=== PATIENT | female | born 1980 | race Caucasian/White ===

== ENCOUNTER 2016-03-26 11:27 | Emergency (ER) | payer OTHER ==
[~2016-03-26] VITALS: Ht 167.6 cm; Wt 89.0 kg
[~2016-03-26 11:27] MED LIST: AZIT500T5 PO; HYDR-906 PO; KENC1 TOP; MED4DP PO; NAPR-260 PO; NAPR-688 PO; OFLO5DRO7 BOTH EARS
[2016-03-26 11:31] VITALS: Ht 167.6 cm; Wt 89.0 kg
--- NOTE | 2016-03-26 13:41 | RADRPT ---
PROCEDURE: XR Elbow. CLINICAL INDICATION: Pain TECHNIQUE: AP, lateral and oblique views of the left elbow performed. COMPARISON: None. FINDINGS: There is normal mineralization and alignment. There is a tiny linear calcification next to the medial epicondyle, suspicious for a small avulsion fracture. There is no significant joint space narrowing. There is soft tissue swelling in the medial left elbow. RPTAT: AA IMPRESSION: Probable small avulsion fracture from the medial epicondyle. Associated soft tissue swelling. .Jose Ritchie MD, MD Date Time Electronically viewed and signed by .Jose Ritchie MD, on 03/26/2016 13:41 .S/
--- NOTE | 2016-03-26 13:42 | RADRPT ---
PROCEDURE: Left humerus x-ray CLINICAL INDICATION: pain TECHNIQUE: AP and lateral views of the humerus were obtained. COMPARISON: None FINDINGS: There is normal mineralization. No acute fracture or dislocation is seen. There is no significant soft tissue swelling. The visualized joints are normal. RPTAT: AA IMPRESSION: No fractures seen in the humerus x-ray. Probable small avulsion fracture of the medial epicondyle is best seen on the elbow x-ray. .Jose Ritchie MD, MD Date Time Electronically viewed and signed by .Jose Ritchie MD, on 03/26/2016 13:42 .S/
[2016-03-26] MEDS ORDERED: CEPH-443 PO (14:27)
[2016-03-26] MEDS ORDERED: IBUP-1542 PO (14:27)
--- NOTE | 2016-03-26 14:46 | ERD ---
ER Documentation Chief Complaint Date/Time DATE: 03/26/16 TIME: 14:42 Chief Complaint left arm pain, no trauma, wants antibiotics, HPI This is a 35-year-old female presents to the ER with left elbow pain that started about a week ago. Patient states that her left elbow is swollen. She also has swelling of her left humerus. Patient is a current heroin user and states that she did heroin and now has some areas with there is some redness and warmth. Patient is concerned about an infection. Patient has had a fever however fever resolved. Patient denies any falls or trauma. Denies any numbness or tingling of her extremity. ROS 12 point review of systems was done, all negative except per HPI. Medications Home Meds Active Scripts Cephalexin* (Keflex*) 500 Mg Capsule, 500 MG PO QID for 7 Days, CAP Prov:CRISTHIAN MORENO 03/26/16 Ibuprofen* (Motrin*) 600 Mg Tab, 600 MG PO Q6, #30 TAB Prov:CRISTHIAN MORENO 03/26/16 Naproxen* (Naprosyn*) 500 Mg Tablet, 500 MG PO BID Y for PAIN AND/OR INFLAMMATION, #30 TAB Prov:JAMES NUR PA-C 12/23/15 Hydrocodone/Acetaminophen (Cutler 5-325 Tablet) 1 Each Tablet, 1 TAB PO Q6H Y for PAIN, #7 TAB Prov:JAMES NUR PA-C 12/23/15 Triamcinolone Acetonide (Triamcinolone Acetonide) 0.1% - 15 Gm Cream.gm., 1 APPLIC TOP BID for 7 Days, #1 TUB Prov:OSMEL RADFORD MD 10/27/15 Ofloxacin* (Floxin* Otic) 0.3% -10 Ml Soln, 5 DROP BOTH EARS BID for 10 Days, BOTTLE Prov:OSMEL RADFORD MD 10/27/15 Azithromycin* (Azithromycin*) 500 Mg Tablet, 500 MG PO DAILY, #3 TAB Prov:ELINOR TAY DO 10/25/15 Naproxen* (Naproxen*) 500 Mg Tablet, 500 MG PO BID, #14 TAB Prov:ELINOR TAY DO 10/25/15 Methylprednisolone* (Medrol* DOSE PACK) 4 Mg/Dose-Pack Tab.ds.pk, 4 MG PO . DIRECTED, #16 PACKET 4 tabs for 3 days, then 2 tabs for 2 days then 1 tab for 2 days Prov:ELINOR TAY DO 10/25/15 Allergies Allergies: Coded Allergies: No Known Allergy (Unverified , 10/27/15) PMhx/Soc Medical and Surgical Hx: pt denies Medical Hx, pt denies Surgical Hx History of Surgery: No Anesthesia Reaction: No Hx Neurological Disorder: No Hx Respiratory Disorders: No Hx Cardiac Disorders: No Hx Psychiatric Problems: No Hx Miscellaneous Medical Probl: No Hx Alcohol Use: No Hx Substance Use: Yes (heroine 14hrs ago) Hx Tobacco Use: No Smoking Status: Never smoker Physical Exam Vitals Vital Signs Date Time Temp Pulse Resp B/P Pulse Ox O2 Delivery O2 Flow Rate FiO2 03/26/16 11:31 98.1 79 20 148/79 99 Physical Exam C GENERAL: The patient is well developed and appropriate for usual state of health, in no apparent distress. HEENT: Atraumatic. Conjunctivae are pink. Pupils equal, round, and reactive to light. Extraocular muscles are grossly intact. Bilateral tympanic membranes are clear with no evidence of erythema, effusion or dulling of the light reflex. The oropharynx is clear with no erythema or exudates. NECK: C-spine is soft and supple. There is no cervical lymphadenopathy. CHEST: Clear to auscultation bilaterally. There are no rales, wheezes or rhonchi. HEART: Regular rate and rhythm. No murmurs, clicks, rubs or gallops. BACK: No midline or flank tenderness. EXTREMITIES: Left elbow: There is some swelling to the left elbow, patient is tender to palpation along medial epicondyle. Patient has full range of motion of her elbow. There is some swelling of the distal left humerus. However it is not tender to palpation. Patient is a wrist is normal with no pain. NEURO: Alert and oriented. SKIN: Multiple areas of redness and swelling throughout arms from injection points. Procedures/MDM This is a 35-year-old female presents to the ER with left elbow pain. Patient does have an avulsion fracture of her left elbow, patient may have fallen while intoxicated on heroin and does not remember. Patient was put in a posterior long-arm splint. She was neurovascularly intact before and after splint application. Patient also has multiple areas where infections could be arising is very warm to touch and red. Patient will be sent home with Keflex. She will also be sent home with ibuprofen. Patient needs to follow-up with her primary care doctor within 1-2 days return to ER sooner if symptoms worsen. My medical decision making shared with the patient she understands and agrees with plan Departure Diagnosis: Primary Impression: Cellulitis Additional Impression: Elbow fracture Condition: Stable Patient Instructions: Elbow Fracture Additional Instructions: Call your primary care doctor TOMORROW for an appointment during the next 1-2 days.See the doctor sooner or return here if your condition worsens before your appointment time. CRISTHIAN MORENO Mar 26, 2016 14:46
== END 2016-03-26 14:42 | disposition home or self-care (01) ==
LOC: FTE 11:27
DX: L03.114 Cellulitis of left upper limb (principal); S42.402A Unspecified fracture of lower end of left humerus, initial encounter for closed fracture; X58.XXXA Exposure to other specified factors, initial encounter; Y92.9 Unspecified place or not applicable
CPT/HCPCS: 29505; 73060; 73080; Z7502